=== PATIENT | female | born 1985 | race African-American/Black ===

== ENCOUNTER 2021-12-26 05:21 | Observation (INO) ==
--- NOTE | 2021-12-24 11:52 | Anesthesiology Consultation ---
Date of Service December 24, 2021 Assessment & Plan (1) Encounter for pre-operative examination: Chart Review Chart Review: Acceptable Risk for Surgery and Patient NOT seen in Pre Admission Testing - Check test AM DOS Per nursing assessment 12/24/2021, pt drove to [place] on 12/20/21 to visit family at private residence. No large crowds. No known Covid positive exposures or Covid related symptoms. No known Covid infection in the past 90 days. Pt is fully vaccinated for Covid. Preop Covid testing 12/23/21= negative History Surgery Operation Date: 12/26/21 09:20 Proposed Procedures p Dx Laparotomy and Abdominal Myomectomy - Taylor Correa Height/Weight Height: 5 ft 9 in Weight: 79.379 kg Allergies Allergy/AdvReac Type Severity Reaction Status Date / Time oxytocin AdvReac Unknown Nausea Verified 12/24/21 11:11 Medications Home Medications Medication Instructions Recorded Confirmed Last Taken cholecalciferol (vitamin D3) 125 125 mcg PO QAM 12/24/21 12/24/21 Unknown mcg (5,000 unit) tablet (Vitamin D3) ferrous sulfate 27 mg iron tablet 27 mg PO QAM 12/24/21 12/24/21 Unknown magnesium 200 mg tablet 400 mg PO QAM 12/24/21 12/24/21 Unknown riboflavin (vitamin B2) 400 mg 400 mg PO QAM 12/24/21 12/24/21 Unknown tablet Past Medical History Medical History Anemia CURRENTLY TAKING IRON SUPPLEMENTS Past Surgical History Surgical History S/P ORIF (open reduction internal fixation) fracture RIGHT LEG , AT 16 YRS OLD S/P wisdom tooth extraction Social History Smoking Status: Never smoker Do You Dip or Chew Tobacco: No Hx Alcohol Use: Yes (QOD) Alcohol type: wine Hx Substance Use: No substance use type: does not use Testing Laboratory Results 12/18/21= WBC: 4.7 H/H: 10.7/32.7 (hx of anemia/heavy menses bleeding- reason for procedure) PLATELETS: 323
[2021-12-26] MEDS ORDERED: LACTATED RINGER'S 1,000 ML IV SCH ×2 (06:00→13:00)
[2021-12-26] MEDS ORDERED: ceFAZolin 2000MG 2,000 MG/15 ML SYR IV SCH (06:00)
[2021-12-26] MEDS ORDERED: LR 15ML/HR IV SCH (06:00)
[2021-12-26] MEDS ORDERED: fentaNYL citrate 100 MCG/2 ML VIAL ONE ×3 (06:37→08:57)
[2021-12-26] MEDS ORDERED: MIDAZOLAM HCL 1 MG/ML 2ML VIAL ONE (06:37)
--- NOTE | 2021-12-26 06:37 | History & Physical Bridge Note ---
Date of Service December 26, 2021 History & Physical Bridge Note I have examined the patient, reviewed the History & Physical and in the interval since the performance of the History & Physical I have noted the following changes of clinical significance: no changes noted
[2021-12-26] MEDS ORDERED: SCOPOLAMINE 1 MG TDSY TD ONE ×2 (07:01→07:02)
[2021-12-26] MEDS ORDERED: ATROPINE SULFATE 0.1 MG/ML 10ML SYR IV PRN (07:02)
[2021-12-26] MEDS ORDERED: PROMETHAZINE HCL 12.5 MG in SODIUM CHLORIDE 0.9% 50 ML IV PRN (07:02)
[2021-12-26] MEDS ORDERED: KETOROLAC 30 MG/ML VIAL IV PRN (07:02)
[2021-12-26] MEDS ORDERED: ONDANSETRON INJ 2 MG/ML 2 ML VIAL IV PRN ×2 (07:02→12:50)
[2021-12-26] MEDS ORDERED: HYDROmorphone INJ 1 MG/ML SYRINGE IV PRN (07:02)
[2021-12-26] MEDS ORDERED: BUPIVACAINE/EPINEPHRINE 0.25% 1:200,000 30 ML VIAL ONE (07:36)
[2021-12-26] MEDS ORDERED: VASOPRESSIN 20 UNIT/ML VIAL ONE (07:40)
[2021-12-26] MEDS ORDERED: BUPIVACAINE LIPOSOME 1.3% 266 MG/20 ML VIAL ONE (07:41)
[2021-12-26] MEDS ORDERED: SODIUM CHLORIDE 0.9% PF 50 ML VIAL ONE (07:41)
[2021-12-26] MEDS ORDERED: PROPOFOL IV EMULSION 10 MG/ML 20 ML VIAL IV ONE (07:44)
[2021-12-26] MEDS ORDERED: ONDANSETRON INJ 2 MG/ML 2 ML VIAL ONE (07:44)
[2021-12-26] MEDS ORDERED: GLYCOPYRROLATE 0.2 MG/ML VIAL ONE (07:44)
[2021-12-26] MEDS ORDERED: NEOSTIGMINE METHYLSULFATE 1 MG/ML 10ML VIAL ONE (07:44)
[2021-12-26] MEDS ORDERED: ROCURONIUM BROMIDE 10 MG/ML 5 ML VIAL IV ONE ×2 (07:44→10:03)
[2021-12-26] MEDS ORDERED: LIDOCAINE 2% 2 ML VIAL/AMP(20MG/ML) INFIL ONE (07:44)
[2021-12-26] MEDS ORDERED: DEXAMETHASONE SOD INJ 4 MG/ML VIAL ONE (07:44)
--- NOTE | 2021-12-26 08:12 | Post Operative Brief Note ---
Immediate Post Op Note v1 Date of Surgery December 26, 2021 Pre & Post Diagnosis Operation Date: 12/26/21 07:00 <No data on this case meets the specified criteria> I identified the patient and participated in the time-out.: Yes Procedure Operation Date: 12/26/21 07:00 Actual Procedures s Diagnostic Laparotomy and Abdominal Myomectomy - Taylor Correa p Umbilical Hernia Repair(Not Applicable) - Tony Pedro MD Surgeon Tony Pedro MD Picker None Estimated Blood Loss 2 Findings Consistent with Post-Op Diagnosis
--- NOTE | 2021-12-26 08:15 | Operative Report ---
Post Operative Report Pre & Post Diagnosis Operation Date: 12/26/21 07:00 <No data on this case meets the specified criteria> I identified the patient and participated in the time-out.: Yes Procedure Operation Date: 12/26/21 07:00 Actual Procedures s Diagnostic Laparotomy and Abdominal Myomectomy - Taylor Correa p Umbilical Hernia Repair(Not Applicable) - Tony Pedro MD Surgeon Tony Pedro MD Design Engineer Products None Estimated Blood Loss 2 Findings Consistent with Post-Op Diagnosis Specimens None Anesthesia Type General Complications No immediate complications Description of Procedure The patient was taken to the operating room, placed supine on the operating table. A timeout was performed, SCD boots were placed, perioperative antibiotics were administered. After adequate anesthesia and analgesia was obtained, the area was prepped and draped in the normal sterile fashion. An infraumbilical incision was made and was carried down to the level of subcutaneous tissue. The hernia defect was identified and the sac was dissected free circumferentially. The umbilical stalk was detached from the fascia. The sac was opened and was noted to have some fat within it. The sac was excised down to the level of the fascia and sent off the field. The edges of the fascia were identified and cleaned. Attenuated fascia was excised. The defect measured 1.5 cm. Cephalad to the defect, there was a 1 mm opening in the fascia. This was closed with a 2-0 Prolene suture. A small Ventralex round patch was brought onto the field and maneuvered into the underlay position. It was secured to the fascia with 2-0 Prolene transfacial sutures. The fascia was then closed overlying the mesh with additional interrupted 2-0 Prolene sutures. The wound was copiously irrigated, and suctioned free. Hemostasis was excellent. The umbilical stalk was reattached with 3-0 Vicryl suture. The subcutaneous tissue was closed with 3-0 Vicryl. The skin was closed with a running 4-0 Monocryl subcuticular stitch. Dermabond was applied. The patient tolerated the procedure without complication, and was transferred in stable condition to the PACU. All instrument, needle, and sponge counts were correct at the end of the case. I attest to the content of the Intraoperative Record and any orders documented therein. Any exceptions are noted below.
--- NOTE | 2021-12-26 10:39 | Post Operative Brief Note ---
Immediate Post Op Note v1 Date of Surgery December 26, 2021 Pre & Post Diagnosis Operation Date: 12/26/21 07:00 Pre-Op Diagnosis: Multifibroid Uterus, Heavy Bleeding, Umbilical Hernia Post-Op Diagnosis: Multifibroid Uterus, Heavy Bleeding, Umbilical Hernia I identified the patient and participated in the time-out.: Yes Procedure Operation Date: 12/26/21 07:00 Actual Procedures s Diagnostic Laparotomy and Abdominal Myomectomy - Taylor Correa p Umbilical Hernia Repair(Not Applicable) - Tony Pedro MD Surgeon Taylor Correa Director Cardiovascular None Estimated Blood Loss 402 Findings Consistent with Post-Op Diagnosis Drains Payne Catheter Anesthesia Type General
--- NOTE | 2021-12-26 11:08 | Operative Report ---
Post Operative Report Pre & Post Diagnosis Operation Date: 12/26/21 07:00 Pre-Op Diagnosis: Multifibroid Uterus, Heavy Bleeding, Umbilical Hernia Post-Op Diagnosis: Multifibroid Uterus, Heavy Bleeding, Umbilical Hernia I identified the patient and participated in the time-out.: Yes Procedure Operation Date: 12/26/21 07:00 Actual Procedures s Diagnostic Laparotomy and Abdominal Myomectomy - Taylor davis Umbilical Hernia Repair(Not Applicable) - Tony Pedro MD Surgeon Taylor Correa MD Bow String Maker Erica Alvarado PA-C Estimated Blood Loss 400 Findings See Below 1. Large multi-fibroid uterus (approximately 18 fibroids of varying sizes removed. The largest approximately 8-10 cm). 2. Fibroids were located on the anterior and posterior uterus, left lateral uterine wall near the left cornua and adnexal region. Two fibroids were noted to have a submucosal component. 3. Normal appearing fallopian tubes and ovaries bilaterally 4. Anterior and posterior cul-de-sac were free of adhesions or lesions Due to the amount of uterine fibroids, multiple uterine incisions, and entering the endometrial cavity, Patient should not labor with future pregnancies. C- sections deliveries only. Highly recommend early if feasible. Fluids See Anesthesia Report Specimens Uterine fibroids Drains Dee catheter. Urine: 325 ml Anesthesia Type General Complications none Indications 36 yo with a multi-fibroid uterus, heavy menstrual bleeding and an umbilical hernia desiring surgical management. Description of Procedure The patient was taken to the operating room when anesthesia was found to be adequate for the abdominal myomectomyand hernia repair procedure. She was prepared and draped in a normal sterile fashion, in the supine position. A dee catheter was sterilely inserted. At this time, Dr. Pedro (General Surgery) repaired the umbilical hernia (see his note). After completion of the hernia repair, attention was turned to the abdominal myomectomies. Attention was then turned to the patients abdomen, at which time a Pfannenstiel skin incision was made with a scalpel and carried down to the underlying fascia with a Bovie. This incision was extended laterally using Holbrook scissors. The superior and inferior aspects of this incision were grasped with the Uzair clamps, elevated, and the rectus muscles were dissected off. Access was gained to the peritoneal cavity through a separation of the rectus muscles. At that time, a survey of the upper abdomen revealed no gross abnormalities palpated. The pelvis showed an enlarged multiple fibroid uterus. The patient was placed in Trendelenburg. At this time, the bowel was packed away with large moist lap sponges. The Ben retractor was placed into the patients abdomen to facilitate visualization. Once there was proper visualization of the uterus, the anterior/posterior/left lateral surface of the uterus was then evaluated and vasopressin was injected along the myoma surfaces. Once the myomas were isolated, they were grasped with the towel clip and between blunt dissection and needle tip Bovie cautery, that was used to be shelled out of the myometrium completely. Once all the anterior and left lateral fibroids were removed, each remaining surface was closed in three layers using 0 V-loc barbed suture initially, then closing a second layer with the same 0 V-loc barbed suture, and finally 2-0 Vicryl in the serosal layer. This was done all along the anterior and left lateral surface of the uterus where each myoma was removed. Attention was then turned to the patients posterior uterus, where in a similar fashion multiple fibroids were excised. The posterior uterus was injected with more vasopressin solution, incised with the needle tip Bovie cautery, double towel clips were used to grasp this fibroids and to dissect it out of the myometrium. These incisions were also closed in three layers. Hemostasis was ensured throughout each incision site. Once all fibroids were removed, there were a total of 18 fibroids. The pelvis was then irrigated with warm normal saline and again hemostasis was ensured. All packs and retractors were removed from the patients abdomen. She was flattened out of the Trendelenburg position. The fascia and the subcutaneous tissue were injected with exparel for analgesia. The fascia was then reapproximated using 0 Vicryl x2. The subcutaneous tissue was closed using 2-0 Vicryl suture and finally the skin was closed with 4-0 monocryl and dermabond.. Sponge, lap, and needle counts were correct x2 and she was taken to the recovery room in stable condition. My Bow String Maker was necessary throughout the procedure for uterine manipulation, retraction, handling of instruments to ensure adequate visualization, gentle tissue manipulation, and hemostasis. Due to the amount of uterine fibroids, multiple uterine incisions, and entering the endometrial cavity, Patient should not labor with future pregnancies. C- sections deliveries only. Highly recommend early if feasible. I attest to the content of the Intraoperative Record and any orders documented therein. Any exceptions are noted below.
[2021-12-26] MEDS ORDERED: ACETAMINOPHEN 1000 MG/100 ML IV IV ONE ×2 (11:47→11:50)
[2021-12-26] MEDS ORDERED: oxyCODONE/ACETAMINOPHEN 5mg/325mg TAB PO PRN (12:55)
--- NOTE | 2021-12-26 13:21 | Anesthesiology Progress Note ---
Date of Service December 26, 2021 Anesthesia Post Procedure Vital Signs Vital Signs: Temp Pulse Resp BP Pulse Ox 12/26/21 12:15 54 L 13 123/66 98 12/26/21 12:00 49 L 12 117/72 99 12/26/21 11:50 44 L 16 121/73 100 12/26/21 11:40 45 L 18 114/71 99 12/26/21 11:30 36.4 C L 45 L 16 114/77 100 12/26/21 11:20 45 L 16 121/76 100 12/26/21 11:10 47 L 12 129/79 100 12/26/21 11:00 57 L 19 128/81 100 12/26/21 10:50 55 L 14 131/70 100 12/26/21 10:40 45 L 15 123/76 100 12/26/21 10:34 36.3 C L 50 L 16 100/83 100 12/26/21 05:50 37.0 C 48 L 16 117/80 100 Pain Intensity Lower Abdomen: Pain Intensity: 3 Transfer of Care Handoff Completed per policy Notes Mental Status: alert / awake / arousable Patient Amnestic to Procedure: Yes Nausea / Vomiting: adequately controlled Pain: adequately controlled Airway Patency, RR, SpO2: stable & adequate BP & HR: stable & adequate Hydration State: stable & adequate Anesthetic Complications: no major complications apparent
[2021-12-26] MEDS ORDERED: CHECK SCOPOLAMINE PATCH PLACEMENT SCH (16:00)
[2021-12-26] MEDS: ACETAMINOPHEN 325 MG TAB PO SCH ×2 (16:42→22:37)
[2021-12-26] MEDS: KETOROLAC 30 MG/ML VIAL IV SCH ×2 (16:43→22:37)
[2021-12-26] MEDS: SIMETHICONE 80 MG CHEW PO SCH ×2 (16:43→19:27)
[2021-12-26] MEDS: DOCUSATE SODIUM 100 MG CAP PO SCH (19:27)
[2021-12-27] MEDS: KETOROLAC 30 MG/ML VIAL IV SCH ×2 (04:57→09:51)
[2021-12-27] MEDS: ACETAMINOPHEN 325 MG TAB PO SCH ×2 (04:57→09:50)
--- NOTE | 2021-12-27 06:27 | Discharge Summary ---
Date of Service December 27, 2021 Admission HPI Per Admitting Provider Ada Batres is a 36 year old female patient who presented with symptomatic uterine fibroids. Monthly menses, lasting 8 days (previously 5 days) with heavy bleeding on the first 2 days. Patient using pads and changing every hour on the heavy days. Occasional intermenstrual spotting. Not currently sexually active. TVUS in Mar 2020 revealed an enlarged fibroid uterus with largest myoma measuring 7.8 cm.Patient had a subsequent MRI in Jan 2021 which revealed enlarged myomatous uterus. These are mostly enhancing with minimal degenerated nonenhancing components. Several are pedunculated. Largest myomas enumerated as above. Endometrial stripe is markedly distorted.Next MRI scheduled for 12/12/2021. Patient was last seen in Mar 2021 and treatment options discussed, as well as, Patient was referred to [facility] to discuss fertility options. Patient now desires to proceed with removal of fibroids. Admission Exam (Per Admitting) Constitutional WD/WN, vitals as above Respiratory normal respiratory effort, lungs clear to auscultation Cardiovascular RRR, no murmur, no edema Gastrointestinal (Abdomen) normal bowel sounds, soft, nontender, no hepatosplenomegaly Discharge Data Procedures Performed Operation Date: 12/26/21 07:00 Actual Procedures s Diagnostic Laparotomy and Abdominal Myomectomy - Taylor Correa p Umbilical Hernia Repair(Not Applicable) - Tony Pedro MD Hospital Course (1) Uterine fibroid: s/p Abdomimal myomectomy and umbilical hernia repair
[2021-12-27 06:35] LABS: Hematocrit (blood only) 28.5 % (37-47); Hemoglobin 9.3 g/dL (12.0-16.0); Mean Corpuscular Hemoglobin 28.9 pg (25-34); Mean Corpuscular Hgb Conc 32.6 g/dL (32-36); Mean Corpuscular Volume 88.5 fL (80-100); Mean Platelet Volume 8.9 fL (7.4-10.4); Platelet Count 278 K/uL (130-400); RDW Coefficient of Variation 13.2 % (11.5-14.5); RDW Standard Deviation 42.9 fL (36.4-46.3); Red Blood Count 3.22 M/uL (4.2-5.4); White Blood Count 9.84 K/uL (4.8-10.8)
--- NOTE | 2021-12-27 06:45 | Gynecologic Progress Note ---
Date of Service December 27, 2021 Assessment & Plan (1) Uterine fibroid: Plan: s/p Abdomimal myomectomy and umbilical hernia repair Plan: POD#1. Patient meeting discharge criteria. Discharge home with discharge instructions. Post-op medications previously prescribed. Admission and Anticipated Discharge Date Admission Date: December 26, 2021 Subjective Patient seen and examined. Patient reports pain and nausea improved from yesterday. Tolerating regular diet. Urinating without difficulty. Denies flatus. Review of Systems Review of Systems: All systems reviewed & are unremarkable except as noted in Subjective Physical Exam Constitutional: WD/WN, vitals as above Respiratory: normal respiratory effort, lungs clear to auscultation Cardiovascular: RRR, no murmur, no edema Gastrointestinal (Abdomen): normal bowel sounds, soft, nontender, no hepatosplenomegaly Incisions: C/D/I. No erythema or edema. Results & Data ([facility]) Vital Signs (Past 12 Hours) Vital Signs Temp Pulse Resp BP Pulse Ox 12/27/21 04:50 37.1 C 66 16 102/63 98 12/26/21 22:30 37.6 C H 88 16 108/66 98 12/26/21 19:20 37.2 C 57 L 16 124/76 100
[2021-12-27] MEDS ORDERED: NON-FORMULARY MEDICATION (Riboflavin (Vitamin B2) 400 mg Tablet) PO SCH (09:00)
[2021-12-27] MEDS ORDERED: CHOLECALCIFEROL 5,000 UNITS 125 MCG TAB PO SCH (09:00)
[2021-12-27] MEDS ORDERED: MAGNESIUM OXIDE 400 MG TAB PO SCH (09:00)
[2021-12-27] MEDS: SIMETHICONE 80 MG CHEW PO SCH (09:49)
[2021-12-27] MEDS: FERROUS SULFATE 325 MG TAB PO SCH ×2 (09:49→09:59)
[2021-12-27] MEDS: DOCUSATE SODIUM 100 MG CAP PO SCH (09:49)
== END 2021-12-27 10:40 | disposition home or self-care (01) ==
LOC: ASU 05:21 → PACUINP 05:21 → 4E1 13:01